=== PATIENT | male | born 1975 | race Caucasian/White ===

== ENCOUNTER 2018-10-21 14:43 | Emergency (ER) | payer SELFPAY ==
[2018-10-21] MEDS ORDERED: 0.9 % SODIUM CHLORIDE 1,000 ML BAG IV ONE (15:08)
--- NOTE | 2018-10-21 15:09 | Emergency Department Record ---
History of Present Illness - General Chief Complaint: Dizziness Stated Complaint: BLURRED VISION,DIZZY,LT HEADED Time Seen by Provider: 10/21/18 14:59 Mode of Arrival: Ambulatory - History of Present Illness Initial Comments: The patient is here due to a 2 week hx of lightheadedness with standing for 2 we eks. The symptoms do come on with standing and walking and improve with lying flat. The patient has intermittent blurred vision at times with the lightheadedness but no THOMSON, CP, SOB, MECCA, or sweating. There has been no hx of trauma or injury or new medicines. The patient states the symptoms did resolve a week ago but then returned about 4-5 hours ago. Presently he is lying flat and feels completely back to normal. There is no hx of CP with exertion or any PRATT. MD Complaint: Lightheadedness Onset/Timin -: Hour(s) Timing: Sudden onset Description: Difficulty walking, Lightheadedness, Near-syncope History of Same: Yes History of Trauma: Yes Severity: Mild Improves With: Other (Lying down.) Worsens With: Other (Standing.) Associated Symptoms: Other - Nicolaus Coma Scale Eye Response: (4) Open spontaneously Motor Response: (6) Obeys commands Verbal Response: (5) Oriented Nicolaus Total: 15 - Related Data Home Medications Medication Instructions Recorded Confirmed Last Taken No Home Med [NO HOME MEDS] 10/21/18 10/21/18 Unknown Allergies Allergy/AdvReac Type Severity Reaction Status Date / Time No Known Drug Allergies Allergy Verified 10/21/18 15:01 Travel Screening - Travel/Exposure Within Last 30 Days Have you traveled within the last 30 days?: No - Travel/Exposure Within Last Year Have you traveled outside the [place] in the last year?: No - Additonal Travel Details Have you been exposed to anyone with a communicable illness?: No - Travel Symptoms Symptom Screening: None Review of Systems Constitutional: Denies: Chills, Fever Eyes: Denies: Eye discharge ENT: Denies: Congestion Respiratory: Denies: Cough, Dyspnea Cardiovascular: Denies: Arrhythmia Past Medical History - SOCIAL HISTORY Smoking Status: Current every day smoker Alcohol Use: Occasional Drug Use: None - RESPIRATORY Hx Respiratory Disorders: Yes Hx Bronchitis: Yes Hx Pneumonia: Yes Hx Sleep Apnea: Yes Hx of CPAP: No - CARDIOVASCULAR Hx Cardio Disorders: Yes Hx Chest Pain: Yes - NEURO Hx Neuro Disorders: No - GI Hx GI Disorders: No - Hx Genitourinary Disorders: No - ENDOCRINE Hx Endocrine Disorders: No - MUSCULOSKELETAL Hx Musculoskeletal Disorders: Yes - PSYCH Hx Psych Problems: No - HEMATOLOGY/ONCOLOGY Hx Hematology/Oncology Disorders: No Family Medical History Any Significant Family History?: No Physical Exam - General General Appearance: Alert, Oriented x3, Cooperative, No acute distress - Head Head exam: Atraumatic, Normocephalic, Normal inspection - Eye Eye exam: Normal appearance, PERRL, EOMI - ENT ENT exam: Normal exam Throat exam: Normal inspection. negative: Tonsillar erythema, Tonsillar exudate - Neck Neck exam: Normal inspection, Full ROM. negative: Tenderness - Respiratory Respiratory exam: Normal lung sounds bilaterally. negative: Respiratory distress - Cardiovascular Cardiovascular Exam: Regular rate, Normal rhythm, Normal heart sounds. negative: Diastolic murmur, Systolic murmur - GI/Abdominal GI/Abdominal exam: Soft, Normal bowel sounds. negative: Tenderness - Extremities Extremities exam: Normal inspection, Full ROM, Normal capillary refill. negative: Tenderness - Back Back exam: Reports: Normal inspection - Neurological Neurological exam: Alert, Normal gait, Oriented X3, Other (Neg Drift and Rhomberg exams.). negative: Abnormal gait, Altered, Motor sensory deficit - Psychiatric Psychiatric exam: negative: Depressed - Skin Skin exam: negative: Rash Course Vital Signs 10/21/18 14:54 Temperature 97.7 F Pulse Rate 90 Respiratory 20 Rate Blood Pressure 145/82 Pulse Ox 95 - Reevaluation(s) Reevaluation #1: The patient is doing very well at this time. He did receive a liter of IVF and does feel back to normal. I did get the patient up walking and he has no THOMSON, visual changes, lightheadedness or weakness. He feels comfortable going home and will F/U with his PCP. 10/21/18 16:24 Medical Decision Making - Data Complexity MDM Data: EKG Ordered and/or Reviewed - Lab Data Result diagrams: 10/21/18 15:23 10/21/18 15:23 - EKG Data -: EKG Interpreted by Me EKG: No Acute Changes, Normal EKG Disposition Disposition: Discharge Clinical Impression: Lightheadedness Disposition: Home, Self-Care Condition: (2) Stable Instructions: Dizziness (ED) Additional Instructions: Please drink plenty of fluids and please see your doctor for recheck next week. Return to the ER for any worsening symptoms or any pain or discomfort. Forms: Patient Portal Access Time of Disposition: 16:25 Quality - Quality Measures Quality Measures: N/A - Blood Pressure Screening View Details: Yes Does Patient Have Any of the Following: No Blood Pressure Classification: Pre-Hypertensive BP Reading Systolic Measurement: 129 Diastolic Measurement: 83 Screening for High Blood Pressure: < Pre-Hypertensive BP, F/U Documented > [[id number]] Pre-Hypertensive Follow-up Interventions: Referral to alternative/primary care provider.
[2018-10-21 15:27] LABS: ABSOLUTE NEUTROPHIL COUNT 8.94; BASO % 0.2 % (0-6); EOS % 0.7 % (0-6); GRAN % 79.7 % (47-80); HEMATOCRIT 45.3 % (42.0-52.0); HEMOGLOBIN 15.3 gm/dl (14.0-18.0); LYMPH % 12.9 % (16-45); MEAN CELL VOLUME 89.7 fl (81-97); MEAN CORPUSCULAR HEMOGLOBIN 30.3 pg (27-33); MEAN CORPUSCULAR HGB CONC 33.8 g/dl (32-36); MEAN PLATELET VOLUME 9.9 fl (7.4-10.4); MONO % 6.5 % (0-9); PLATELET COUNT 272 K/uL (130-400); RED BLOOD COUNT 5.05 M/uL (4.40-5.70); WHITE BLOOD COUNT W/O DIFF 11.2 K/uL (4.2-12.2)
[2018-10-21 15:56] LABS: BLOOD UREA NITROGEN 21 mg/dL (6-20)
[2018-10-21 15:57] LABS: CREATININE 0.9 mg/dL (0.7-1.2); EST GLOMERULAR FILTRATION RATE > 60 mL/min; TOTAL PROTEIN 7.7 g/dL (6.6-8.7)
[2018-10-21 15:59] LABS: GLUCOSE,RANDOM 135 mg/dL (74-109)
[2018-10-21] MEDS ORDERED: IBUPROFEN 600 MG TABLET PO ONE (16:01)
[2018-10-21 16:02] LABS: ALB/GLOB RATIO 1.3 (1.1-1.8); ALBUMIN 4.4 g/dL (4.0-5.0); ALKALINE PHOSPHATASE 61 U/L (40-129); ALT/SGPT 28 U/L (<41); AST/SGOT 17 U/L (10.0-50.0); CREATINE PHOSPHOKINASE 91 U/L (39-308)
[2018-10-21 16:05] LABS: CKMB < 1.0 ng/mL (<6.73)
== END 2018-10-21 16:34 | disposition home or self-care (01) ==
LOC: ER 14:43
DX: R42 Dizziness and giddiness (principal); R26.2 Difficulty in walking, not elsewhere classified; F17.210 Nicotine dependence, cigarettes, uncomplicated
CPT/HCPCS: 80053; 82550; 82553; 84484; 85025; 93005; 93010; 96360; 99284; J7030